=== PATIENT | female | born 1975 | race Caucasian/White ===

== ENCOUNTER 2021-07-15 14:46 | Inpatient (IN) | payer SELFPAY ==
[2021-07-15] MEDS ORDERED: Ondansetron ODT 4 MG TAB PO PRN (15:20)
[2021-07-15] MEDS ORDERED: Ondansetron PF 4 MG/2 ML Vial IVP PRN (15:20)
[2021-07-15 18:27] VITALS: BMI 25.0
[2021-07-15] MEDS ORDERED: Sodium Chloride 0.9% (PF) 10 ML VIAL FS PRN (18:30)
[2021-07-15] MEDS ORDERED: Pantoprazole 40 MG VIAL IVP SCH (18:30)
[2021-07-15] MEDS: Morphine 2 MG/ML VIAL SLOW IVP PRN ×2 (20:22→22:38)
[2021-07-15] MEDS: D5 1/2 NS w/20 mEq KCL 1,000 ML IV SCH (20:22)
[2021-07-16] MEDS: D5 1/2 NS w/20 mEq KCL 1,000 ML IV SCH ×4 (02:16→20:12)
[2021-07-16] MEDS: Morphine 2 MG/ML VIAL SLOW IVP PRN ×3 (04:15→11:48)
[2021-07-16] MEDS: Pantoprazole 40 MG VIAL IVP SCH (08:24)
[2021-07-16] MEDS: Ondansetron PF 4 MG/2 ML Vial IVP PRN ×3 (11:49→23:07)
[2021-07-16] MEDS ORDERED: MD-Gastroview 120 ML BOT ONE (12:33)
[2021-07-16 13:45] LABS: SARS-CoV-2 PCR by NAA Not Detected (NotDetected)
[2021-07-16] MEDS ORDERED: traMADol HCl 50 MG TAB PO PRN (16:47)
[2021-07-16] MEDS: traMADol HCl 50 MG TAB PO PRN (20:14)
[2021-07-17] MEDS: traMADol HCl 50 MG TAB PO PRN ×5 (02:07→22:49)
[2021-07-17] MEDS: D5 1/2 NS w/20 mEq KCL 1,000 ML IV SCH ×3 (02:09→19:54)
[2021-07-17] MEDS: Ondansetron PF 4 MG/2 ML Vial IVP PRN (08:16)
[2021-07-17] MEDS: Pantoprazole 40 MG VIAL IVP SCH (08:16)
[2021-07-17 08:46] LABS: ALT (SGPT) 20 U/L (8-55); AST (SGOT) 18 U/L (5-34); Albumin 3.5 g/dL (3.5-5.0); Alkaline Phosphatase 115 U/L (40-110); Anion Gap 9 mmol/L (10-20); BUN (Urea Nitrogen) Less than 4 mg/dL (7.0-18.7); Bilirubin, Total 0.4 mg/dL (0.2-1.2); Calc. Creatinine Clearance 105 mL/min (70-130); Calcium 8.8 mg/dL (7.8-10.44); Carbon Dioxide 25 mmol/L (22-29); Chloride 105 mmol/L (98-107); Globulin 2.8 g/dL (2.4-3.5); Glucose 104 mg/dL (70-105); Potassium 3.5 mmol/L (3.5-5.1); Protein, Total 6.3 g/dL (6.0-8.3); Sodium 135 mmol/L (136-145)
[2021-07-17 09:00] LABS: #Eosinphils 0.2 thou/uL (0.0-0.7); #Lymphocytes 1.1 thou/uL (1.20-3.40); #Monocytes 0.6 thou/uL (0.11-0.59); #Neutrophils 3.7 thou/uL (1.40-6.50); %Basophils 0.4 % (0.0-1.0); %Eosinophils 3.4 % (0.0-10.0); %Lymphocytes 19.6 % (21.0-51.0); %Monocytes 10.9 % (0.0-10.0); %Neutrophils 65.7 % (42.0-75.0); Hemoglobin 9.3 g/dL (12.0-16.0); Mean Corpuscular HGB CONC 33.7 g/dL (32.0-36.0); Mean Corpuscular Hemoglobin 29.5 pg (27.0-31.0); Mean Corpuscular Volume 87.5 fL (78.0-98.0); Mean Platelet Volume 8.7 fL (7.4-10.4); Platelet Count 134 thou/uL (130-400); RBC Distribution Width 16.2 % (11.5-14.5); Red Blood Cell (RBC) Count 3.16 mill/uL (4.20-5.40); White Blood Cell (WBC) Count 5.6 thou/uL (4.8-10.8)
[2021-07-18] MEDS: traMADol HCl 50 MG TAB PO PRN ×4 (02:45→23:39)
[2021-07-18] MEDS: Pantoprazole 40 MG VIAL IVP SCH (07:50)
[2021-07-18] MEDS ORDERED: SUGAMMADEX SODIUM 200 MG/2 ML VIAL ONE (10:10)
[2021-07-18] MEDS ORDERED: Dexamethasone 20 MG/5 ML VIAL ONE (10:14)
[2021-07-18] MEDS ORDERED: Succinylcholine 200 MG/10 ml SYRINGE FS ONE (10:14)
[2021-07-18] MEDS ORDERED: Rocuronium Bromide 10 MG/ML (10ML VIAL) ONE (10:14)
[2021-07-18] MEDS ORDERED: Lidocaine 1% PF 5 ML VIAL ONE (10:14)
[2021-07-18] MEDS ORDERED: PROPOFOL 200 MG/20 ML VIAL ONE (10:14)
[2021-07-18] MEDS ORDERED: diphenhydrAMINE 50 MG/ML VIAL ONE (10:14)
[2021-07-18] MEDS ORDERED: Ondansetron PF 4 MG/2 ML Vial ONE (10:14)
[2021-07-18] MEDS ORDERED: PHENYLEPHRINE-NS 100 MCG/ML 10 ML SYRINGE ONE (10:14)
[2021-07-18] MEDS ORDERED: Ondansetron HCl/PF 4 MG/2 ML Vial IVP PRN (10:54)
[2021-07-18] MEDS: D5 1/2 NS w/20 mEq KCL 1,000 ML IV SCH ×2 (11:51→21:21)
[2021-07-18] MEDS: Ondansetron PF 4 MG/2 ML Vial IVP PRN ×2 (14:49→19:24)
[2021-07-18] MEDS ORDERED: Sodium Chloride 0.9% 500 ML IV SCH ×2 (17:00→17:15)
[2021-07-18] MEDS ORDERED: Acetaminophen 500 MG TAB PO PRN (17:08)
[2021-07-18 17:32] LABS: Hemoglobin 9.6 g/dL (12.0-16.0); Platelet Count 130 thou/uL (130-400)
[2021-07-18] MEDS ORDERED: Cosyntropin 250 MCG VIAL SLOW IVP SCH (21:00)
[2021-07-18] MEDS ORDERED: Cyanocobalamin 1000 MCG/ML VIAL IM SCH (21:00)
[2021-07-18] MEDS ORDERED: Electrolyte Replacement Protocol 1 EACH FS SCH (21:00)
[2021-07-18] MEDS: Albumin 25% 25 GM/100 ML BOT IVPB SCH (21:21)
[2021-07-18] MEDS: Folic Acid 1 MG TAB PO SCH (21:21)
[2021-07-18 23:02] LABS: Troponin I Less than 0.010 ng/mL (< 0.028)
[2021-07-19] MEDS: traMADol HCl 50 MG TAB PO PRN ×2 (04:09→08:50)
[2021-07-19 04:16] LABS: CRP (Inflammatory) 6.29 mg/dL (= or < 0.5); Phosphorus 3.7 mg/dL (2.3-4.7)
[2021-07-19 04:18] LABS: Anion Gap 10 mmol/L (10-20); BUN (Urea Nitrogen) 4 mg/dL (7.0-18.7); Calc. Creatinine Clearance 117 mL/min (70-130); Calcium 8.9 mg/dL (7.8-10.44); Carbon Dioxide 23 mmol/L (22-29); Chloride 108 mmol/L (98-107); Glucose 156 mg/dL (70-105); Potassium 4.3 mmol/L (3.5-5.1); Sodium 137 mmol/L (136-145)
[2021-07-19 04:24] LABS: #Lymphocytes 0.5 thou/uL (1.20-3.40); #Monocytes 0.3 thou/uL (0.11-0.59); #Neutrophils 4.2 thou/uL (1.40-6.50); %Eosinophils 0.2 % (0.0-10.0); %Lymphocytes 9.9 % (21.0-51.0); %Neutrophils 84.9 % (42.0-75.0); Anisocytosis SLIGHT = 6-15 cells (100X) (0-5/hpf); Hemoglobin 8.2 g/dL (12.0-16.0); MDiff Complete? YES; Mean Corpuscular HGB CONC 32.4 g/dL (32.0-36.0); Mean Corpuscular Hemoglobin 28.8 pg (27.0-31.0); Mean Platelet Volume 9.5 fL (7.4-10.4); Platelet Count 112 thou/uL (130-400); Platelet Morphology Comment Appears Decreased; RBC Distribution Width 16.6 % (11.5-14.5); Red Blood Cell (RBC) Count 2.86 mill/uL (4.20-5.40); White Blood Cell (WBC) Count 4.9 thou/uL (4.8-10.8)
[2021-07-19] MEDS: Albumin 25% 25 GM/100 ML BOT IVPB SCH (05:10)
[2021-07-19] MEDS: D5 1/2 NS w/20 mEq KCL 1,000 ML IV SCH ×2 (05:16→11:14)
[2021-07-19] MEDS ORDERED: Magnesium 2 GM/50 ML 2 GM in Premix Bag 1 BAG IVPB SCH (06:30)
[2021-07-19] MEDS ORDERED: Potassium Chloride 20 MEQ TAB PO SCH (06:45)
[2021-07-19] MEDS: Folic Acid 1 MG TAB PO SCH (08:49)
[2021-07-19] MEDS: Pantoprazole 40 MG VIAL IVP SCH (08:49)
[2021-07-19 08:56] VITALS: BP 121/74; TEMP 98
[2021-07-19] MEDS: Ondansetron PF 4 MG/2 ML Vial IVP PRN (08:57)
[2021-07-19] MEDS ORDERED: Multivit, Therapeutic 1 TAB PO SCH (09:00)
[2021-07-19] MEDS ORDERED: Cyanocobalamin (Vitamin B-12) 1,000 MCG TAB PO SCH (09:00)
[2021-07-19] MEDS ORDERED: Iron, Sodium Ferric Gluconate 125 MG in Sodium Chloride 0.9% 250 ML 250 ML IVPB SCH (09:00)
[2021-07-19] MEDS ORDERED: Iron, Sodium Ferric Gluconate 250 MG in Sodium Chloride 0.9% 250 ML 250 ML IVPB SCH (09:00)
== END 2021-07-19 12:16 | disposition home or self-care (01) | DRG 392 ==
LOC: SURG A 17:10 → OBSVTOIN 17:17
PROVIDERS: ADMIT Surgery; ATTEND Surgery
PROC: 0DB98ZX Excision of Duodenum, Via Natural or Artificial Opening Endoscopic, Diagnostic (ICD-10-PCS; principal; 2021-07-18)
DX: R10.31 Right lower quadrant pain (principal); E87.1 Hypo-osmolality and hyponatremia; Z20.822 Contact with and (suspected) exposure to COVID-19; Z53.20 Procedure and treatment not carried out because of patient's decision for unspecified reasons; D64.9 Anemia, unspecified; E53.8 Deficiency of other specified B group vitamins; I95.9 Hypotension, unspecified; E87.6 Hypokalemia; I95.89 Other hypotension; Z90.710 Acquired absence of both cervix and uterus; Z90.722 Acquired absence of ovaries, bilateral; Z79.899 Other long term (current) drug therapy; Z88.6 Allergy status to analgesic agent; Z88.5 Allergy status to narcotic agent; Z80.9 Family history of malignant neoplasm, unspecified; Z82.49 Family history of ischemic heart disease and other diseases of the circulatory system; Z83.49 Family history of other endocrine, nutritional and metabolic diseases
CPT/HCPCS: 36415; 74250; 76705; 80048; 80053; 80400; 82728; 83540; 83550; 83735; 84100; 84484; 85014; 85018; 85025; 85049; 86140; 88305; C9113; J0834; J1100; J1200; J2270; J2405; J2704; J3420; J3475; J3480; J7030; P9047; Q9963; U0003; U0005

== ENCOUNTER 2023-02-27 19:12 | Emergency (ER) | payer SELFPAY ==
[~2023-02-27 19:12] MED LIST: Iopamidol-370 76% 500 ML MDV (1 ML CHARGE) ONE
[2023-02-27 19:55] LABS: Bacteria/HPF None Seen HPF (None Seen); Bilirubin Negative (Negative); Blood, Urine Negative (Negative); Clarity Clear (Clear); Glucose, Urine (Dipstick) Normal (Negative); Ketone, Urine Negative (Negative); Leukocyte 25 Leu/uL (Negative); Nitrite Negative (Negative); Pregnancy Test - Urine (BHCG) Negative (Negative); Pregu Control Background? CLEAR/WHITE (CLR/WHITE); Pregu Control Bar Appear? YES (CONTROL BAR); Protein, Urine (Dipstick) Negative (Neg-Trace); RBC/HPF 0-3 HPF (0-3); Specific Gravity 1.014 (1.002-1.036); Specific Gravity, Urine 1.014 (1.002-1.036); Squamous Epithelial 0-3 HPF (0-3); Urobilinogen Normal mg/dL (Less than 2); WBC/HPF 0-3 HPF (0-3)
[2023-02-27] MEDS ORDERED: Morphine 4 MG/ML VIAL ONE (21:06)
[2023-02-27] MEDS ORDERED: Dicyclomine 20 MG TAB ONE (21:06)
[2023-02-27] MEDS ORDERED: Ondansetron PF 4 MG/2 ML Vial ONE (21:06)
[2023-02-27] MEDS ORDERED: Famotidine/PF 20 mg/2ml Vial ONE (21:06)
[2023-02-27 21:12] LABS: #Eosinphils 0.1 thou/uL (0.0-0.7); #Lymphocytes 1.5 thou/uL (1.20-3.40); #Monocytes 0.4 thou/uL (0.11-0.59); %Basophils 0.5 % (0.0-1.0); %Lymphocytes 21.7 % (21.0-51.0); %Monocytes 5.6 % (0.0-10.0); %Neutrophils 71.2 % (42.0-75.0); Hemoglobin 11.9 g/dL (12.0-16.0); Mean Corpuscular Hemoglobin 31.2 pg (27.0-31.0); Mean Corpuscular Volume 91.8 fl (78.0-98.0); Platelet Count 165 10x3/uL (130-400); RBC Distribution Width 18.1 % (11.5-14.5); White Blood Cell (WBC) Count 7.1 10x3/uL (4.8-10.8)
[2023-02-27 21:35] LABS: ALT (SGPT) 49 U/L (8-55); AST (SGOT) 115 U/L (5-34); Albumin 4.3 g/dL (3.5-5.0); Alkaline Phosphatase 115 U/L (40-110); Anion Gap 14 mmol/L (10-20); BUN (Urea Nitrogen) 12 mg/dL (7.0-18.7); Bilirubin, Total 0.3 mg/dL (0.2-1.2); Calc. Creatinine Clearance 0 mL/min (70-130); Calcium 9.3 mg/dL (7.8-10.44); Carbon Dioxide 22 mmol/L (22-29); Chloride 108 mmol/L (98-107); Estimated GFR 97; Globulin 3.2 g/dL (2.4-3.5); Glucose 114 mg/dL (70-105); Lipase 65 U/L (8-78); Potassium 3.1 mmol/L (3.5-5.1); Protein, Total 7.5 g/dL (6.0-8.3); Sodium 141 mmol/L (136-145)
[2023-02-27] MEDS ORDERED: Potassium Chloride 20 MEQ TAB ONE (22:29)
== END 2023-02-27 22:50 | disposition home or self-care (01) ==
LOC: ERS 19:12
DX: R10.84 Generalized abdominal pain (principal)
CPT/HCPCS: 74177; 80053; 81003; 81015; 81025; 83690; 85025; 96374; 96375; J2270; J2405; S0028

== ENCOUNTER 2025-07-25 18:42 | Emergency (ER) | payer BC, SELFPAY ==
[2025-07-25] MEDS ORDERED: Ondansetron PF 4 MG/2 ML Vial ONE (21:49)
[2025-07-25 22:01] LABS: #Basophils 0.12 10x3/uL (0.0-0.2); #Eosinophils 0.15 10x3/uL (0.0-0.7); #Monocytes 0.46 10x3/uL (0.11-0.59); #Neutrophils 6.08 10x3/uL (1.40-6.50); %Basophils 1.3 % (0.0-1.0); %Eosinophils 1.7 % (0.0-10.0); %Lymphocytes 23.4 % (21.0-51.0); %Monocytes 5.2 % (0.0-10.0); %Neutrophils 68.1 % (42.0-75.0); Hematocrit 27.7 % (36.0-47.0); Hemoglobin 8.0 g/dL (12.0-16.0); Mean Corpuscular Hemoglobin 25.0 pg (27.0-31.0); Mean Corpuscular Volume 86.6 fL (78.0-98.0); Platelet Count 242 10x3/uL (130-400); Red Blood Cell (RBC) Count 3.20 mill/uL (4.20-5.40); White Blood Cell (WBC) Count 8.93 10x3/uL (4.8-10.8)
[2025-07-25 22:25] LABS: ALT (SGPT) 25 U/L (Less than 34); AST (SGOT) 57 U/L (11-34); Albumin 4.1 g/dL (3.1-4.5); Alkaline Phosphatase 132 U/L (40-110); Anion Gap 16 mmol/L (10-20); Anisocytosis SLIGHT = 6-15 cells HPF (0-5); BUN (Urea Nitrogen) 8 mg/dL (7.0-18.7); Bilirubin, Total 0.2 mg/dL (0.3-1.2); Calc. Creatinine Clearance 0 mL/min (70-130); Calcium 9.8 mg/dL (7.8-10.44); Carbon Dioxide 20 mmol/L (22-29); Chloride 106 mmol/L (98-107); Globulin 3.9 g/dL (2.4-3.5); Glucose 97 mg/dL (70-105); Lipase 36 U/L (8-78); Macrocytosis SLIGHT = 6-15 cells HPF (0-5); Ovalocytes SLIGHT = 2-5 cells HPF (0-1); Platelet Adequacy Comment Platelets Normal; Polychromasia SLIGHT = 2-3 cells HPF (0-2); Potassium 3.7 mmol/L (3.5-5.1); Sodium 138 mmol/L (136-145); Stomatocytes SLIGHT = 2-5 cells HPF (0-1)
[2025-07-25 23:10] LABS: Pregnancy Test - Urine (BHCG) Negative (Negative); Pregu Control Background? CLEAR/WHITE (CLR/WHITE); Pregu Control Bar Appear? YES (CONTROL BAR)
[2025-07-25 23:13] LABS: CAUTI Indications for Culture Pelvic or flank pain; RBC/HPF 0-3 HPF (0-3); Specific Gravity, Urine 1.023 (1.002-1.036)
[2025-07-25 23:18] LABS: Bacteria/HPF 1+ HPF (None Seen)
[2025-07-25 23:19] LABS: Glucose, Urine (Dipstick) Unable to Interpret mg/dL (Negative); Leukocyte Unable to Interpret Leu/uL (Negative); Protein, Urine (Dipstick) Unable to Interpret mg/dL (Neg-Trace)
[2025-07-25 23:21] LABS: Urine Culture Reflex Yes Yes
[2025-07-25] MEDS ORDERED: Cephalexin 250 MG CAP ONE (23:37)
== END 2025-07-25 23:40 ==
LOC: ERS 18:42
DX: N39.0 Urinary tract infection, site not specified (principal)
CPT/HCPCS: 74176; 80053; 81001; 81025; 83690; 85025; 87077; 87086; 96374; 96375